=== PATIENT | male | born 1945 | race Caucasian/White ===

== ENCOUNTER → 2017-11-17 | Outpatient (CLI) | payer OTHER, MEDICARE | LOC: BHLMT 15:30 | PROVIDERS: ATTEND Internal Medicine Interventional Cardiology | DX: R07.9 Chest pain, unspecified (principal); I25.10 Atherosclerotic heart disease of native coronary artery without angina pectoris; R01.1 Cardiac murmur, unspecified; R06.02 Shortness of breath | CPT/HCPCS: 93306-PO ==

== ENCOUNTER 2017-12-16 12:18 | Inpatient (IN) | payer OTHER, MEDICARE ==
[2017-12-16] MEDS ORDERED: ASPIRIN EC 325 MG TAB PO ONE (12:22)
[2017-12-16] MEDS ORDERED: FAMOTIDINE 20 MG TAB PO ONE (12:22)
[2017-12-16] MEDS ORDERED: DIAZEPAM 5 MG TAB PO ONE (12:22)
[2017-12-16] MEDS ORDERED: NS 1,000 ML IV ONE ×2 (12:22→16:10)
[2017-12-16] MEDS ORDERED: diphenhydrAMINE 25 MG CAP PO ONE (12:22)
[2017-12-16 13:24] LABS: PLATELET COUNT 269 10^3/uL (150-400)
[2017-12-16] MEDS ORDERED: IOPAMIDOL (ISOVUE-370) 150 ML BTL IV ONE (13:24)
[2017-12-16] MEDS ORDERED: fentaNYL 100 MCG/2 ML INJ ONE ×2 (13:24→16:29)
[2017-12-16] MEDS ORDERED: LIDOCAINE 1% 300 MG/30 ML SDV ONE (13:24)
[2017-12-16] MEDS ORDERED: MIDAZOLAM 2 MG/2 ML VIAL ONE ×2 (13:24→16:21)
[2017-12-16 13:34] LABS: INR 1.02 (0.83-1.16); PROTIME(PATIENT) 13.6 SEC (12.0-15.0)
[2017-12-16] MEDS ORDERED: ALPRAZolam 0.25 MG TAB PO PRN (13:56)
--- NOTE | 2017-12-16 16:09 | PDHPUP ---
History & Physical Update H&P update statement: This history and physical update is based on an assessment of the patient which was completed after admission or registration (within 24 hours), but prior to the surgery/procedure.72 year old male with severe who present for LHC prior to AVR tomorrow. H&P update: H&P reviewed & patient examined, no change in patient's condition since H&P completed
--- NOTE | 2017-12-16 16:09 | PDPROPOC ---
Sedation Plan of Care Sedation Plan of Care: vital signs stable, mental status noted, patient can tolerate sedation ASA Classification: ASA 2 Planned drugs: fentanyl, midazolam Mallampati Score: Class 2 Mallampati Reference Image: Patient passed 3-3-2 rule?: Yes
[2017-12-16] MEDS ORDERED: LIDOCAINE 1% 2 ML INJ ID PRN (16:10)
[2017-12-16] MEDS ORDERED: ATROPINE SULFATE 1 MG/10 ML SYR IVP PRN (17:43)
[2017-12-16] MEDS ORDERED: ONDANSETRON 4 MG/2 ML VIAL IVP PRN (17:43)
--- NOTE | 2017-12-16 18:45 | GCON ---
INFECTIOUS DISEASE CONSULTATION DATE OF CONSULTATION: 12/16/2017 REFERRING PHYSICIAN: Chintan Kessler DO REASON FOR CONSULTATION: Upper chest rash with possibility of shingles. HISTORY OF PRESENT ILLNESS: Patient is a 72-year-old male with severe aortic stenosis who is having a cardiac catheterization prior to anticipated aortic valve replacement tomorrow when a rash was note d over his right upper chest. Patient describes having a rash in this region for approximately 2 wee ks. Over the last week, the area has been pruritic. There has been no pain, numbness, or tingling. He has not noted any blistering. There are also some smaller areas over the right shoulder and left inner arm. No associated fevers, chills, or night sweats. Patient describes having prior shingles vaccination. He believes he did have chickenpox as a child. Given the above findings, I am now asked to see the patient in consultation to assess for any compone nt related to VZV and its impact on proceeding with planned aortic valve replacement. PAST MEDICAL HISTORY: Anxiety, aortic stenosis, coronary artery disease, peptic ulcer disease, hyper lipidemia. PAST SURGICAL HISTORY: Unremarkable. CURRENT MEDICATIONS: Atorvastatin 40 mg p.o. daily, omeprazole 20 mg p.o. daily, Xanax as needed for anxiety. ALLERGIES: No known drug allergies. SOCIAL HISTORY: Patient quit smoking many years ago. REVIEW OF SYSTEMS: No fevers, chills, or night sweats. SKIN: See HPI. NEUROLOGIC: No numbness, t ingling, or weakness. PHYSICAL EXAMINATION: GENERAL: Well nourished, well developed in no acute distress. HEENT: No scl eral icterus, conjunctival injection. No oral thrush. CHEST: Clear to auscultation bilaterally wit hout adventitious sounds. CARDIOVASCULAR: Regular rate and rhythm with a 2/6 systolic murmur heard at the right and left upper sternal borders. ABDOMEN: Soft, nontender, nondistended. SKIN: There is a mild follicular rash over the right upper chest with a few irritated follicles on the right scap ular region and 2 over the left inner arm. No vesicles are present. No crusting or pustulosis. GINETTE ROLOGIC: Patient is alert, interacts appropriately with examiner. LABORATORY DATA: White blood cell count 5.9, hematocrit 40.6, platelets 269, neutrophils 56%, lympho cytes 31%. Serum creatinine 1.2. IMPRESSION: Right upper chest rash: Appears most consistent with mild folliculitis. Appearance wou ld be atypical for shingles as no vesicles present and does not distinctly follow dermatomal distribu tion. Current findings should not preclude proceeding with aortic valve replacement as scheduled sivan orrow. RECOMMENDATIONS: 1. No infectious disease opposition to proceeding with scheduled aortic valve replacement. 2. Agree with standard perioperative Hibiclens and antibiotic prophylaxis. 3. Advised patient to notify me if he develops any blistering or worsening of rash. Thank you for this consultation. /[id number]/MODL
[2017-12-16] MEDS ORDERED: CHLORHEXIDINE GLUC HIBICLENS 118 ML BTL TP SCH (21:00)
--- NOTE | 2017-12-17 04:07 | CPIP ---
DATE OF PROCEDURE: 12/16/2017 INDICATION FOR PROCEDURE: Preoperative left heart catheterization in anticipation of aortic valve re placement tomorrow with Dr. Kessler in the setting of severe aortic stenosis. PROCEDURE: 1. Left heart catheterization. 2. Left and right coronary angiography. 3. No attempt was made to cross the aortic valve. PROCEDURE IN DETAIL: After informed consent was obtained, the patient was brought to the cardiac cat heterization lab where he was prepped and draped in a sterile fashion. Using micropuncture modified Seldinger technique, a 6-German catheter was placed into the right common femoral artery without comp lications. A JL-4 catheter was used to cannulate the left anterior descending coronary artery. Of n ote, he had separate ostia for both the LAD and circumflex vessel. Left anterior descending demonstr ated ostial and proximal stenosis of 60% to 70%. He has a 50% to 60% proximal stenosis just distal t o the takeoff of the 2nd septal agricultural produce washer and 1st diagonal branch. The remainder of the LAD demonst rates some mild luminal irregularities. There is a separate ostia for the circumflex. This is a large caliber, dominant vessel with a large 1st obtuse marginal branch. There is no evidence of significant coronary disease within the circumfl ex vessel. The right coronary artery is a small nondominant vessel. There is no evidence of coronary disease wi thin the RCA. CONCLUSIONS: 1. Single-vessel coronary disease within the left anterior descending. 2. No significant coronary disease in the circumflex or right coronary artery. 3. Separate ostia for the left anterior descending and circumflex. RECOMMENDATIONS: Would recommend single-vessel coronary artery bypass grafting to the left anterior descending in the setting of ostial stenosis as well as proximal stenosis just distal to the 2nd sept al and 1st diagonal branch. We will contact Dr. Kessler and update him on the findings. Patient tolerated the procedure well. Angio-Seal was deployed. Hemostasis was achieved. /[id number]/MODL
[2017-12-17] MEDS ORDERED: niCARdipine/NACL 200 ML IV ONE (06:00)
[2017-12-17] MEDS ORDERED: CITRATE DEXTROSE SOLN 500 ML BAG MISC ONE (06:00)
[2017-12-17] MEDS ORDERED: PHENYLEPHRINE HCL 50 MG in NS 250 ML IV ONE (06:00)
[2017-12-17] MEDS ORDERED: ceFAZolin 2 GM/DEXTROSE 100 ML IV ONE (06:00)
[2017-12-17] MEDS ORDERED: NOREPINEPHRINE BITARTRATE 16 MG in NS 250 ML IV ONE (06:00)
[2017-12-17] MEDS ORDERED: SODIUM BICARBONATE 20 MEQ, LIDOCAINE 1% 10 ML in NORMOSOL-R 1,000 ML MISC ONE (06:00)
[2017-12-17] MEDS ORDERED: AMINOCAPROIC ACID 5 GM/20 ML VIAL IV ONE (06:00)
[2017-12-17] MEDS ORDERED: MUPIROCIN 2% 22 GM OINT NS ONE (06:00)
[2017-12-17] MEDS ORDERED: INSULIN REGULAR HUMAN 100 UNIT in NS 100 ML IV ONE (06:00)
[2017-12-17] MEDS ORDERED: MANNITOL 25% 12.5 GM/50 ML VIAL IVP ONE (06:00)
[2017-12-17] MEDS ORDERED: PROTAMINE SULFATE 50 MG/5 ML VIAL IVP ONE (06:25)
[2017-12-17] MEDS ORDERED: HEPARIN 10,000 UNIT/10 ML MDV (1,000 UNIT/ML) ONE ×2 (06:26→06:29)
[2017-12-17] MEDS ORDERED: NA BICARBONATE 50 MEQ/50 ML VIAL ONE (06:26)
[2017-12-17] MEDS ORDERED: MILRINONE/DEXTROSE/100 ML BAG IV ONE (06:26)
[2017-12-17] MEDS ORDERED: CALCIUM CHLORIDE 1 GM/10 ML INJ ONE ×2 (06:26→06:28)
[2017-12-17] MEDS ORDERED: AMIODARONE HCL 150 MG/3 ML VIAL ONE ×2 (06:27→06:29)
[2017-12-17] MEDS ORDERED: niCARdipine/NACL/200 ML BAG IV ONE (06:27)
[2017-12-17] MEDS ORDERED: ADENOSINE 6 MG/2 ML VIAL ONE (06:27)
[2017-12-17] MEDS ORDERED: DOPamine/DEXTROSE 400 MG/250 ML BAG IV ONE ×2 (06:27→17:42)
[2017-12-17] MEDS ORDERED: ceFAZolin 1 GM VIAL ONE (06:27)
[2017-12-17] MEDS ORDERED: NITROGLYCERIN/D5W 50 MG/250 ML BOTTLE IV ONE (06:27)
[2017-12-17] MEDS ORDERED: ALBUMIN 5% 250 ML BOTTLE IV ONE ×2 (06:28→16:18)
[2017-12-17] MEDS ORDERED: LIDOCAINE 2% 100 MG/5 ML SYR ONE (06:28)
[2017-12-17] MEDS ORDERED: CITRATE DEXTROSE SOLN 500 ML BAG ONE (06:29)
[2017-12-17] MEDS ORDERED: methylPREDNISolone SOD SUCC 1 GM/8 ML VIAL ONE (06:29)
[2017-12-17] MEDS ORDERED: MAGNESIUM SULFATE 1 GM/2 ML VIAL ONE (06:29)
--- NOTE | 2017-12-17 07:54 | PDHPUP ---
History & Physical Update H&P update statement: This history and physical update is based on an assessment of the patient which was completed after admission or registration (within 24 hours), but prior to the surgery/procedure. H&P update: H&P reviewed & patient examined, changes noted H&P changes: LAD CAD
[2017-12-17] MEDS ORDERED: HEP MISC ONE (08:00)
[2017-12-17] MEDS ORDERED: SOD BICARB MISC ONE (08:00)
[2017-12-17] MEDS ORDERED: NITRO MISC ONE (08:00)
[2017-12-17] MEDS ORDERED: [UNRECOGNIZED DRUG - OTHER] MISC ONE (08:00)
[2017-12-17] MEDS ORDERED: LR MISC ONE (08:00)
[2017-12-17] MEDS ORDERED: PAPAVERINE HCL 60 MG/2 ML SDV ONE (08:05)
[2017-12-17] MEDS ORDERED: VERAPAMIL 5 MG/2 ML VIAL ONE (08:06)
[2017-12-17] MEDS ORDERED: MIDAZOLAM 2 MG/2 ML VIAL IVP ONE (08:26)
--- NOTE | 2017-12-17 08:26 | PDANEPAE ---
ANE History of Present Illness here for AVR/CABG ANE Past Medical History - Cardiovascular History Hx Hypertension: No Hx Arrhythmias: No Hx Chest Pain: Yes Hx Coronary Artery / Peripheral Vascular Disease: Yes Hx CHF / Valvular Disease: Yes Hx Palpitations: Yes Cardiovascular History Comment: chest pain with "excessive exertion" - Pulmonary History Hx COPD: No Hx Asthma/Reactive Airway Disease: No Hx Recent Upper Respiratory Infection: No Hx Oxygen in Use at Home: No Hx Sleep Apnea: No Sleep Apnea Screening Result - Last Documented: Negative Pulmonary History Comment: sinus nasal drip - Neurologic History Hx Cerebrovascular Accident: No Hx Seizures: No Hx Dementia: No - Endocrine History Hx Diabetes: No - Renal History Hx Renal Disorders: No - Liver History Hx Hepatic Disorders: No - Neurological & Psychiatric Hx Hx Neurological and Psychiatric Disorders: No - Cancer History Hx Cancer: No - Congenital Disorder History Hx Congenital Disorders: No - GI History Hx Gastrointestinal Disorders: Yes Gastrointestinal History Comment: GERD. occasional dysphagia. hx of bleeding ulcer. states 'nervous stomach' and recently w/occ diarrhea - Other Health History Other Health History: occasional ringing in ears. actinic keratosis on scalp - Chronic Pain History Chronic Pain: No - Surgical History Prior Surgeries: cataract surgery. retinal detachment repair. angiogram, 2000. colonoscopy ANE Review of Systems Review of systems is: negative Review of Systems: - Exercise capacity Exercise capacity: <4 METS METS (RN): 4 METS ANE Patient History - Allergies Allergies/Adverse Reactions: No Known Allergies Allergy (Verified 12/09/17 10:11) - Home Medications Home medications: home medication list seen and reviewed Home Medications: Aspirin [Aspirin 81mg (*)] 81 mg PO DAILY 08/20/10 [Last Taken 08/19/10 08:00] ALPRAZolam [Xanax 0.25 MG (*)] 0.25 - 0.5 mg PO Q8HRS PRN 12/09/17 [Last Taken Unknown] Atorvastatin Calcium [Lipitor 40 mg (*)] 40 mg PO DAILY 12/09/17 [Last Taken Unknown] Omeprazole 20 mg PO DAILY 12/09/17 [Last Taken Unknown] - NPO status NPO Status: no food or drink >8 hours NPO Since - Liquids (Date): 12/17/17 NPO Since - Liquids (Time): 00:01 NPO Since - Solids (Date): 12/16/17 NPO Since - Solids (Time): 22:00 - Anes Hx Anes Hx: no prior problems - Smoking Hx Smoking Status: Former smoker - Family Anes Hx Family Hx Anesthesia Complications: none ANE Labs/Vital Signs - Labs Result Diagrams: 12/16/17 12:50 12/16/17 14:26 - Vital Signs Vital Signs: reviewed preoperatively; see RN documention for details Blood Pressure: 135/59 Heart Rate: 75 Respiratory Rate: 15 O2 Sat (%): 95 Height: 175.26 cm Weight: 86.3 kg ANE Physical Exam - Airway Neck exam: FROM Mallampati Score: Class 1 Mouth exam: normal dental/mouth exam - Pulmonary Pulmonary: no respiratory distress - Cardiovascular Cardiovascular: regular rate and rhythym - ASA Status ASA Status: IV ANE Anesthesia Plan Anesthesia Plan: general endotracheal anesthesia Lines/Monitors: arterial line, central line, MAXI
[2017-12-17] MEDS ORDERED: LR 1,000 ML IV ONE (08:33)
[2017-12-17] MEDS ORDERED: fentaNYL 250 MCG/5 ML INJ ONE (08:39)
[2017-12-17] MEDS ORDERED: PROPOFOL/EMULSION 500 MG/50 ML BOTTLE IV ONE (08:40)
[2017-12-17] MEDS ORDERED: PHENYLEPHRINE HCL 100 MCG/ML SYR ONE (08:40)
[2017-12-17] MEDS ORDERED: KETAMINE 200 MG/20 ML VIAL ONE (09:35)
[2017-12-17] MEDS ORDERED: ISOFLURANE 100 ML BOTTLE IH ONE (10:35)
[2017-12-17] MEDS ORDERED: HYDROmorphONE/DILAUDID 2 MG/ML INJ ONE (10:40)
[2017-12-17] MEDS ORDERED: DEXMEDETOMIDINE HCL 400 MCG in NS 100 ML IV ONE (12:00)
[2017-12-17] MEDS ORDERED: fentaNYL 100 MCG/2 ML INJ ONE (12:18)
[2017-12-17] MEDS ORDERED: MINERAL OIL 10 ML VIAL ONE (12:48)
[2017-12-17] MEDS ORDERED: SUGAMMADEX SODIUM 200 MG/2 ML VIAL IVP ONE (13:00)
[2017-12-17] MEDS ORDERED: PROPOFOL 200 MG/20 ML VIAL ONE (13:14)
[2017-12-17] MEDS ORDERED: BISACODYL 10 MG SUPP PR PRN (13:21)
[2017-12-17] MEDS ORDERED: LACTULOSE 20 GM/30 ML UDCUP PO PRN (13:21)
[2017-12-17] MEDS ORDERED: ONDANSETRON DISINTEGRATING 4 MG TAB PO PRN (13:21)
[2017-12-17] MEDS ORDERED: ACETAMINOPHEN 325 MG TAB PO PRN (13:21)
[2017-12-17] MEDS ORDERED: fentaNYL 100 MCG/2 ML INJ IVP PRN (13:21)
[2017-12-17] MEDS ORDERED: ACETAMINOPHEN 650 MG SUPP PR PRN (13:21)
[2017-12-17] MEDS ORDERED: SODIUM CL NASAL 45 ML BTL EACHNARE PRN (13:21)
[2017-12-17] MEDS ORDERED: POLYETHYLENE GLYCOL 3350 17 GM PKT PO PRN (13:21)
[2017-12-17] MEDS ORDERED: D50W 25 GM/50 ML SYR IVP PRN (13:21)
[2017-12-17] MEDS ORDERED: PANTOPRAZOLE SODIUM 40 MG VIAL IVP ONE (13:21)
[2017-12-17] MEDS ORDERED: MAGNESIUM HYDROXIDE 30 ML UDCUP PO PRN (13:21)
[2017-12-17] MEDS ORDERED: METOCLOPRAMIDE 10 MG/2 ML VIAL IVP PRN (13:21)
[2017-12-17] MEDS ORDERED: MEPERIDINE 25 MG/0.5 ML AMP IVP PRN (13:21)
[2017-12-17] MEDS ORDERED: POTASSIUM Cl (KCl) 50 ML IV PRN (13:21)
[2017-12-17] MEDS ORDERED: ONDANSETRON 4 MG/2 ML VIAL IVP PRN (13:21)
[2017-12-17] MEDS ORDERED: CEPACOL LOZENGE PO PRN (13:21)
[2017-12-17] MEDS ORDERED: INSULIN REGULAR HUMAN 100 UNIT in NS 100 ML IV SCH (13:30)
[2017-12-17] MEDS ORDERED: niCARdipine/NACL 200 ML IV SCH (13:30)
[2017-12-17] MEDS ORDERED: NS 1,000 ML IV SCH (13:30)
[2017-12-17] MEDS: ALBUMIN 5% 250 ML IV PRN ×2 (14:11→14:44)
--- NOTE | 2017-12-17 14:20 | GOP ---
DATE OF OPERATION: 12/17/2017 SURGEON: Chintan Kessler DO MAINTENANCE ELECTRICIAN: Gómez. ANESTHESIOLOGIST: Chang. PREOPERATIVE DIAGNOSIS: 1. Aortic stenosis. 2. Arteriosclerotic heart disease. POSTOPERATIVE DIAGNOSIS: 1. Aortic stenosis. 2. Arteriosclerotic heart disease. PROCEDURE PERFORMED: 1. Coronary artery bypass grafting x2 with left internal mammary artery to the left anterior descend ing, saphenous vein graft to the diagonal. 2. Aortic valve replacement with a #23 Magna bioprosthesis. 3. Ligate left atrial appendage. 4. Endoscopic vein harvest of the left thigh. FINDINGS: DESCRIPTION OF PROCEDURE: Patient was consented, brought to the operating room, intubated. Monitori ng lines were placed. He was prepped and draped in sterile classical manner. Sternotomy was perform ed. Mammary and vein were harvested endoscopically by GERARDO Vasquez, who first assisted throughout the procedure. Patient was cannulated. Bypass was begun. Cardioplegic arrest was obtained with an tegrade cardioplegia, topical hypothermia, and retrograde cardioplegia. Initially, the distal grafts were performed. The diagonal was a good quality 2.5 mm vessel. The LAD was a 2.8 mm vessel. The conduits were excellent. The proximal anastomosis was completed with a cr oss-clamp on. We then doubly ligated the left atrial appendage with Endoloops. Aortotomy was performed. A heavily calcified bicuspid aortic valve was excised. The anulus was debr ided. The chamber was irrigated. CO2 was infused. A 23 mm Magna valve was sutured in a supra-annul ar position with interrupted 2-0 Tycron pledgeted mattress sutures. Aortotomy was closed in a 2-laye r fashion. Cross-clamp was removed with suction on the ascending aortic vent. Spontaneous cardiac a ctivity was noted to resume. The patient was rewarmed. After echo confirmed adequate valvular and ventricular function, he was weaned from bypass. Heparin was reversed with protamine. Cannula was removed and oversewn. Two pacing wires on the ventricle we re placed, as well as 1 left pleural, 1 mediastinal drain. The thymic fat and pericardium were close d. Chest was closed in standard fashion. Patient was returned to ICU in stable condition. /[id number]/MODL
--- NOTE | 2017-12-17 14:43 | PDMN ---
Medical Necessity Medical necessity: [facility] IP only surgery; Valve Replacement/Repair (cpt 76763) & CABG ([facility] [place] [id number])
[2017-12-17] MEDS ORDERED: ALBUMIN 5% 250 ML IV ONE (17:00)
--- NOTE | 2017-12-17 17:04 | POSTANESTH ---
Post Anesthetic Evaluation Cardiovascular Status: Normal, Stable Respiratory Status: Requires Airway Assist Level of Consciousness/Mental Status: Moderately Sleepy Pain Control: Adequate, Prn Tx Ordered Nausea/Vomiting Control: Adequate, Prn Tx Ordered Complications Possibly Related to Anesthesia: None Noted
[2017-12-17] MEDS: ceFAZolin 2 GM/DEXTROSE 100 ML IV SCH (17:26)
[2017-12-17] MEDS ORDERED: DOPamine 400 MG in D5W 250 ML IV SCH (18:00)
[2017-12-17] MEDS ORDERED: CHLORHEXIDINE GLUCONATE 15 ML UDL PO SCH (21:00)
[2017-12-17] MEDS ORDERED: FAMOTIDINE 20 MG/NACL 50 ML IV SCH (21:00)
[2017-12-17] MEDS: SENNOSIDES/DOCUSATE SODIUM TAB PO SCH (21:42)
[2017-12-17] MEDS: MUPIROCIN 2% 22 GM OINT NS SCH (21:43)
[2017-12-17] MEDS: HYDROCODONE/APAP 5/325 TAB PO PRN (22:38)
[2017-12-18] MEDS: ceFAZolin 2 GM/DEXTROSE 100 ML IV SCH ×3 (00:40→16:45)
[2017-12-18] MEDS: HYDROCODONE/APAP 5/325 TAB PO PRN ×5 (04:58→22:07)
[2017-12-18 05:16] LABS: PLATELET COUNT 128 10^3/uL (150-400)
[2017-12-18] MEDS ORDERED: ALBUMIN 5% 250 ML BOTTLE IV ONE ×2 (06:29→07:18)
--- NOTE | 2017-12-18 06:51 | SOAPPROG ---
SOAP Progress Note Assessment/Plan: Assessment: POD#1 AVR#23 Magna bioprosthesis, CABG x 2 (WANG-LAD, SV-Dx), EVH left thigh, prophylactic suture ligation SHEREEN Sx severe - s/p tissue AVR. Extubated without incident. Hemodynamically stable overnight on low dose dopa. No bradyarrhythmias or backup pacing. Adequately diuresing moderate volume overload. Antithrombotic prophylaxis with ASA alone, pending stability of rhythm. AF prophylaxis with BB when appropriate. Incidental CAD w preserved LV systolic fx - Fully revascularized with 2 bypass grafts. Secondary prevention with baby ASA. BB and statin when appropriate. Acute expected blood loss anemia - Stable. No transfusions needed. No evidence bleeding. VTE prophylaxis with SCDs/SQ hep. Plan: Routine POD#1 orders re drains, wires, orals and mobility. Wean dopa to MAP > 65. Colloid prn CVP < 10. Possible tx to SDU later today. 12/18/17 06:50 Subjective: Feels well. OOB without dizziness. No nausea. IS > 1000. Objective: Vital Signs Temp Pulse Resp BP Pulse Ox 37.3 C 68 14 93/49 L 98 12/18/17 04:00 12/18/17 06:00 12/18/17 06:00 12/18/17 06:00 12/18/17 06:00 Laboratory Results 12/18/17 05:05 12/18/17 05:05 12/17/17 12/18/17 12/19/17 05:59 05:59 05:59 Intake Total 3121 Output Total 2325 Balance 796 PT 13.6 SEC (12.0-15.0) 12/16/17 12:50 INR 1.02 (0.83-1.16) 12/16/17 12:50 Dopa down to 3 mcg overnoc w MAPs > 70 and stable renal fx. Holding SR > 60 w BBB (chronic). Burst of PSVT v NSVT early this am. No sig CTOP. H/H stable. CXR-> No PTX, no pulm vasc congestion, mild bibasilar atelectasis. Physical Exam - Physical Exam General Appearance: alert, no apparent distress Respiratory: crackles (scattered, bases), other (blakes x 2 y-d to pleurovac, serosang drainage, no air leak) Cardiac/Chest: regular rate, rhythm, other (Sternotomy CDI. Vwires intact.) Abdomen: non-tender, soft Skin: warm/dry Extremities: swelling (1+ gen), other (LLE wrap intact.) ICD10 Worksheet Patient Problems: Problems Problem Status Onset Acute blood loss anemia Acute Aortic valve stenosis with insufficiency Acute CAD (coronary artery disease) Acute S/P CABG x 2 Acute S/P aortic valve replacement with bioprosthetic valve Acute
[2017-12-18] MEDS: HEPARIN 5,000 UNIT/0.5 ML INJ SC SCH ×3 (06:55→22:02)
[2017-12-18] MEDS ORDERED: KETOROLAC 15 MG/1 ML SDV IVP PRN (07:25)
[2017-12-18] MEDS ORDERED: ALBUMIN 5% 250 ML IV ONE (07:25)
[2017-12-18] MEDS: PANTOPRAZOLE SODIUM 40 MG TAB PO SCH (08:40)
[2017-12-18] MEDS: SENNOSIDES/DOCUSATE SODIUM TAB PO SCH ×2 (08:40→22:01)
[2017-12-18] MEDS: ASPIRIN 81 MG CHEWABLE TAB PO SCH (08:40)
--- NOTE | 2017-12-18 09:20 | CPEKG ---
Test Reason : OPEN Blood Pressure : / mmHG Vent. Rate : 105 BPM Atrial Rate : 109 BPM P-R Int : 158 ms QRS Dur : 129 ms QT Int : 376 ms P-R-T Axes : 068 042 205 degrees QTc Int : 498 ms Sinus tachycardia Left bundle branch block LBBB is new in comparison to prior Confirmed by Donald Corona ([id number]) on 12/18/2017 9:20:34 AM Referred By: Confirmed By:Donald Corona
[2017-12-18] MEDS: MUPIROCIN 2% 22 GM OINT NS SCH ×2 (09:59→22:02)
[2017-12-18] MEDS ORDERED: ALBUMIN 5% 500 ML IV ONE (11:09)
--- NOTE | 2017-12-18 12:12 | CPEKG ---
Test Reason : OPEN Blood Pressure : / mmHG Vent. Rate : 086 BPM Atrial Rate : 087 BPM P-R Int : 159 ms QRS Dur : 127 ms QT Int : 428 ms P-R-T Axes : 079 076 -74 degrees QTc Int : 512 ms Sinus rhythm IVCD, consider atypical LBBB Confirmed by Donald Corona ([id number]) on 12/18/2017 12:12:06 PM Referred By: Confirmed By:Donald Corona
--- NOTE | 2017-12-18 12:33 | ASMTCASEMG ---
Living Arrangements What is your living Answers: With Spouse arrangement? Who do you live with? Type Of Residence What kind of residence do Answers: House you live in? Discharge Plan Comments Coordination Status Comments Notes: Patient is a 72yo male with severe aortic stenosis who is having cardiac catheterization prior to aortic valve replacement. Cardiac rehab/PT/OT have been ordered. Patient lives in [place] with his . Patient most likely will need cardiac rehab. D/C plan TBD. CM will follow. Date Signed: 12/18/2017 12:32 PM Electronically Signed By:Calista Ford LCSW
[2017-12-18] MEDS ORDERED: NOREPINEPHRINE BITARTRATE 16 MG in NS 250 ML IV SCH (15:00)
--- NOTE | 2017-12-18 16:05 | PDINTPN ---
Wafer Fab Operator Progress Note Assessment/Plan: Assessment: S/P AVR/CABGx2 Hypotension: WIth orthostatic symptoms. Requiring low-dose NE. Post-op anamia: Hgb stable. No signs of significant active bleeding Hyperglycemia: Well-managed with IV insulin. Plan: Wean off insulin, NE. Increase activity as tolerated. Follow Hgb 12/18/17 16:04 Subjective: Lightheaded when standing. Sternal CP. Objective: Vital Signs Temp Pulse Resp BP Pulse Ox 36.4 C 89 10 L 105/43 L 95 12/18/17 11:00 12/18/17 15:00 12/18/17 15:00 12/18/17 15:00 12/18/17 15:00 Laboratory Results 12/18/17 05:05 12/18/17 13:25 12/17/17 12/18/17 12/19/17 05:59 05:59 05:59 Intake Total 3121 480 Output Total 2325 990 Balance 796 -510 PT 13.6 SEC (12.0-15.0) 12/16/17 12:50 INR 1.02 (0.83-1.16) 12/16/17 12:50 Physical Exam - Physical Exam General Appearance: alert, no apparent distress EENT: normal ENT inspection Neck: normal inspection Respiratory: lungs clear, normal breath sounds Cardiac/Chest: regular rate, rhythm, friction rub (single component), No edema Abdomen: normal bowel sounds, non-tender Skin: normal color, warm/dry Extremities: normal inspection Neuro/Psych: alert, normal mood/affect, oriented x 3 ICD10 Worksheet Patient Problems: Problems Problem Status Onset Acute blood loss anemia Acute Aortic valve stenosis with insufficiency Acute CAD (coronary artery disease) Acute S/P CABG x 2 Acute S/P aortic valve replacement with bioprosthetic valve Acute
--- NOTE | 2017-12-18 16:36 | GCON ---
PULMONARY/CRITICAL CARE CONSULTATION DATE OF CONSULTATION: 12/17/2017 REASON FOR REFERRAL: Evaluation and management of postoperative respiratory failure and anemia. HISTORY: The patient is a 72-year-old male with a history of symptomatic aortic stenosis who seen by Dr. Kessler last month for evaluation due to symptoms including lightheadedness and dyspnea. He was f ound to have an aortic valve area of 0.6 sq cm with a pressure gradient of 62 mmHg. He admitted for evaluation yesterday and underwent elective aortic valve replacement today as well as two-vessel kieran nary artery bypass grafting and ligation of the left atrial appendage. His intraoperative course was unremarkable. Postoperatively, he was returned to the intensive care unit intubated. At the time o f my evaluation, he is awake and alert but has recurrent episodes of apnea as long as 40 seconds when placed on CPAP. He denies chest pain or dyspnea. PAST MEDICAL HISTORY: 1. Aortic stenosis. 2. Coronary artery disease. 3. Hypertension. 4. History of peptic ulcer. 5. Hyperlipidemia. MEDICATIONS: At the time of admission include aspirin, atorvastatin, omeprazole, and Xanax. ALLERGIES: None. SOCIAL HISTORY: The patient is retired. He has about a 50 pack-year history of smoking which he sto pped about 20 years ago. He drinks alcohol occasionally. FAMILY HISTORY: History is positive for coronary artery disease. REVIEW OF SYSTEMS: Unobtainable as the patient is intubated and intermittently somnolent, not respon ding consistently to questions. PHYSICAL EXAMINATION: GENERAL: The patient is somnolent but alert. He looks to voice. He falls ba ck asleep quickly. VITAL SIGNS: Blood pressure is 91/53 with a heart rate of 67. He is afebrile. Oxygen saturations are 100% on 40% oxygen. HEENT: Normocephalic and atraumatic. No icterus. NECK: No adenopathy. Trachea is midline. CHEST: Clear to auscultation. CARDIAC: Regular rate and rhy thm without murmur. ABDOMEN: Soft, nontender. Bowel sounds are present. EXTREMITIES: No clubbing , cyanosis, or edema. NEURO: The patient is intermittently alert. He is able to move all extremiti es to command symmetrically. LABORATORY: The chemistry group is unremarkable. Glucose is 146. Hemoglobin is 12.2, down from 13. 8 yesterday. The MCV is 86.6. Arterial blood gas shows a pH of 7.37 with a pO2 of 94, CO2 of 40, an d a bicarbonate of 23 on 40% oxygen with CPAP. A chest x-ray shows a clear lung field. The endotrac heal tube is appropriately placed. Images reviewed by me. ASSESSMENT: 1. Postoperative respiratory failure. The patient is continuing to have apnea, but has good oxygen saturations. This is likely due to a postoperative anesthesia effect. I anticipate this will improv e over the next few hours. 2. Anemia. The patient has mild anemia that is likely related to intraoperative blood loss as well as a volume replacement. 3. Hyperglycemia. The patient has mild hyperglycemia postoperatively. He does not have a preoperat jessica history of diabetes. RECOMMENDATIONS: 1. Continue on CPAP/IMV. Once the patient is more consistently alert, awake, and not having apneic episodes, he can be extubated. 2. Follow hemoglobin. 3. Start insulin drip to control blood sugars postoperatively. /[id number]/MODL
[2017-12-19] MEDS: ceFAZolin 2 GM/DEXTROSE 100 ML IV SCH (00:17)
[2017-12-19] MEDS: HYDROCODONE/APAP 5/325 TAB PO PRN ×5 (02:27→21:06)
[2017-12-19] MEDS: HEPARIN 5,000 UNIT/0.5 ML INJ SC SCH (06:20)
[2017-12-19] MEDS ORDERED: POTASSIUM CL 20 MEQ TAB PO ONE (08:17)
[2017-12-19] MEDS ORDERED: FUROSEMIDE 40 MG/4 ML VIAL IVP ONE (08:17)
--- NOTE | 2017-12-19 08:49 | SOAPPROG ---
SOAP Progress Note Assessment/Plan: Assessment: POD#2 AVR#23 Magna bioprosthesis, CABG x 2 (WANG-LAD, SV-Dx), EVH left thigh, prophylactic suture ligation SHEREEN Sx severe - s/p tissue AVR. Extubated without incident. Transient dopa for postpump vasoplegia. Moderate volume overload well tolerated. No bradyarrhythmias or backup pacing. Antithrombotic prophylaxis with ASA alone, pending stability of rhythm. AF prophylaxis with BB when appropriate. Incidental CAD w preserved LV systolic fx - Fully revascularized with 2 bypass grafts. Secondary prevention with baby ASA. BB and statin when appropriate. Acute expected blood loss anemia with thrombocytopenia - Stable. No transfusions needed. No evidence bleeding. No sig CTOP. Downward trending H/H likely dilutional. Follow. Care w VTE prophylaxis while platelets depressed. Plan: Start IV diuresis. Remove V wires and ant mediastinal drain. Inc mobility as tolerated. Tx to PCU. Baseline postop echo Mon. Dispo - Home without services in 2-3 days. 12/19/17 08:48 Subjective: Feeling better. OOB without dizziness. Adequate analgesia. Objective: Vital Signs Temp Pulse Resp BP Pulse Ox 37.6 C 86 19 103/45 L 91 L 12/19/17 00:00 12/19/17 06:00 12/19/17 06:00 12/19/17 06:00 12/19/17 06:00 Laboratory Results 12/19/17 05:30 12/19/17 05:30 12/18/17 12/19/17 12/20/17 05:59 05:59 05:59 Intake Total 3121 2998 Output Total 2325 1430 150 Balance 796 1568 -150 PT 13.6 SEC (12.0-15.0) 12/16/17 12:50 INR 1.02 (0.83-1.16) 12/16/17 12:50 Off pressor support yest pm. Holding SR with SBPs > 100. Borderline suppl O2 req. CTOP approaching removal criteria. Positive fluid balance. +7 kg overall. Labs ok. Physical Exam - Physical Exam General Appearance: alert, no apparent distress Respiratory: lungs clear (grossly), other (blakes x 2 to bulb suction, serosang drainage) Cardiac/Chest: regular rate, rhythm, other (Sternotomy and LLE venotomy CDI. Vwires intact.) Abdomen: non-tender, soft Skin: warm/dry Extremities: swelling (1+ gen) ICD10 Worksheet Patient Problems: Problems Problem Status Onset Acute blood loss anemia Acute Aortic valve stenosis with insufficiency Acute CAD (coronary artery disease) Acute S/P CABG x 2 Acute S/P aortic valve replacement with bioprosthetic valve Acute
[2017-12-19] MEDS: SENNOSIDES/DOCUSATE SODIUM TAB PO SCH ×2 (10:17→21:02)
[2017-12-19] MEDS: ASPIRIN 81 MG CHEWABLE TAB PO SCH (10:17)
[2017-12-19] MEDS: PANTOPRAZOLE SODIUM 40 MG TAB PO SCH (10:17)
[2017-12-19] MEDS: MUPIROCIN 2% 22 GM OINT NS SCH (10:18)
[2017-12-19] MEDS: traMADol 50 MG TAB PO PRN ×2 (12:01→17:09)
[2017-12-20] MEDS: HYDROCODONE/APAP 5/325 TAB PO PRN ×5 (05:31→21:25)
[2017-12-20 05:56] LABS: PLATELET COUNT 101 10^3/uL (150-400)
[2017-12-20] MEDS: ASPIRIN 81 MG CHEWABLE TAB PO SCH (08:33)
[2017-12-20] MEDS: SENNOSIDES/DOCUSATE SODIUM TAB PO SCH ×2 (08:33→21:25)
[2017-12-20] MEDS: PANTOPRAZOLE SODIUM 40 MG TAB PO SCH (08:34)
--- NOTE | 2017-12-20 08:39 | SOAPPROG ---
SOAP Progress Note Assessment/Plan: Assessment: POD#3 AVR#23 Magna bioprosthesis, CABG x 2 (WANG-LAD, SV-Dx), EVH left thigh, prophylactic suture ligation SHEREEN Sx severe - s/p tissue AVR. Extubated without incident. Transient dopa for postpump vasoplegia. Moderate volume overload well tolerated. No bradyarrhythmias or backup pacing. Antithrombotic prophylaxis with ASA alone, pending stability of rhythm. AF prophylaxis with BB when appropriate. Incidental CAD w preserved LV systolic fx - Fully revascularized with 2 bypass grafts. Secondary prevention with baby ASA. BB and statin when appropriate. Acute expected blood loss anemia with thrombocytopenia - Stable. No transfusions needed. No evidence bleeding. No sig CTOP. Downward trending H/H likely dilutional. Follow. Plan: Consider removal chest tube later today. Cont inc activity as tolerated. Baseline postop echo tomorrow. Resume lipitor tomorrow. Dispo - Home without services in 2 days. 12/20/17 08:40 Subjective: Doing ok. Improving stamina and mobility. No dizziness. Adequate analgesia. Occ dysesthesias LLE below harvest site. Objective: Vital Signs Temp Pulse Resp BP Pulse Ox 37.1 C 104 H 14 94/66 L 93 12/20/17 04:00 12/20/17 07:43 12/20/17 07:43 12/20/17 07:43 12/20/17 07:43 Laboratory Results 12/20/17 05:35 12/20/17 05:35 12/19/17 12/20/17 12/21/17 05:59 05:59 05:59 Intake Total 2998 1050 Output Total 1430 1415 Balance 1568 -365 PT 13.6 SEC (12.0-15.0) 12/16/17 12:50 INR 1.02 (0.83-1.16) 12/16/17 12:50 Holding SR and adequate SBP. Min suppl O2 req. CTOP nearing removal criteria. CXR-> hypovent, mild pulm vasc congestion, bibasilar atelectasis. No further drop in H/H or plts. - Pending Discharge Pending Discharge Within 48 Hours: Yes Pending Discharge Date: 12/22/17 Pending Discharge Time: 11:00 Physical Exam - Physical Exam General Appearance: alert, no apparent distress Respiratory: lungs clear (grossly), other (loyd to bulb suction, mostly serous drainage) Cardiac/Chest: regular rate, rhythm, other (Sternotomy CDI. ) Abdomen: non-tender, soft Skin: warm/dry Extremities: swelling (trace), other (LLE venotomy CDI. Venot tract slightly full and bruised, prob hematoma.) ICD10 Worksheet Patient Problems: Problems Problem Status Onset Acute blood loss anemia Acute Aortic valve stenosis with insufficiency Acute CAD (coronary artery disease) Acute S/P CABG x 2 Acute S/P aortic valve replacement with bioprosthetic valve Acute
--- NOTE | 2017-12-20 17:17 | ASMTCMCOM ---
CM Note CM Note Notes: CM spoke with KAMI Luna, patient progressing post op day 3. On O2 1-2 liters. All tubes removed today. Patient likely to discharge home independent in 1-2 days. CM to follow. Plan: home independent. Date Signed: 12/20/2017 05:17 PM Electronically Signed By:Aleshia Daley
[2017-12-21] MEDS: HYDROCODONE/APAP 5/325 TAB PO PRN ×4 (05:23→20:21)
--- NOTE | 2017-12-21 07:34 | SOAPPROG ---
SOAP Progress Note Assessment/Plan: Assessment: POD#4 AVR#23 Magna bioprosthesis, CABG x 2 (WANG-LAD, SV-Dx), EVH left thigh, prophylactic suture ligation SHEREEN Sx severe - s/p tissue AVR. Extubated without incident. Transient dopa for postpump vasoplegia. Moderate volume overload well tolerated. No bradyarrhythmias or backup pacing. Tubes and wires out. Antithrombotic prophylaxis with ASA alone, pending stability of rhythm. AF prophylaxis with BB as yanci. Incidental CAD w preserved LV systolic fx - Fully revascularized with 2 bypass grafts. Secondary prevention with baby ASA, statin, and BB. Acute expected blood loss anemia with thrombocytopenia - Stable. No transfusions needed. No evidence bleeding. No sig CTOP. Downward trending H/H likely dilutional. Follow. Plan: Baseline postop echo today. Start metoprolol tartrate 12.5 mg BID. Resume lipitor. Dispo - Home without services tomorrow. 12/21/17 07:32 Subjective: Improving stamina. Satisfactory analgesia. +BM. Comfortable going home tomorrow. Objective: Vital Signs Temp Pulse Resp BP Pulse Ox 36.9 C 94 18 112/68 93 12/21/17 04:00 12/21/17 04:00 12/21/17 04:00 12/21/17 04:00 12/21/17 04:00 Laboratory Results 12/21/17 05:40 12/20/17 05:35 12/20/17 12/21/17 12/22/17 05:59 05:59 05:59 Intake Total 1050 600 Output Total 1415 1115 Balance -365 -515 PT 13.6 SEC (12.0-15.0) 12/16/17 12:50 INR 1.02 (0.83-1.16) 12/16/17 12:50 Holding SR/ST with SBPs > 100. Borderline suppl O2 req. Adequate autodiuresis. Labs ok. - Pending Discharge Pending Discharge Within 24 Hours: Yes Pending Discharge Date: 12/22/17 Pending Discharge Time: 11:00 Physical Exam - Physical Exam General Appearance: alert, no apparent distress Respiratory: lungs clear (grossly) Cardiac/Chest: regular rate, rhythm, other (Sternotomy and LLE venotomy CDI) Abdomen: non-tender, soft Skin: warm/dry Extremities: other (no visible dependent edema) ICD10 Worksheet Patient Problems: Problems Problem Status Onset Acute blood loss anemia Acute Aortic valve stenosis with insufficiency Acute CAD (coronary artery disease) Acute S/P CABG x 2 Acute S/P aortic valve replacement with bioprosthetic valve Acute
[2017-12-21] MEDS: SENNOSIDES/DOCUSATE SODIUM TAB PO SCH (09:14)
[2017-12-21] MEDS: ASPIRIN 81 MG CHEWABLE TAB PO SCH (09:14)
[2017-12-21] MEDS: ATORVASTATIN CALCIUM 40 MG TAB PO SCH (09:15)
[2017-12-21] MEDS: METOPROLOL TARTRATE 25 MG TAB PO SCH ×2 (09:15→20:24)
[2017-12-21] MEDS: PANTOPRAZOLE SODIUM 40 MG TAB PO SCH (09:15)
--- NOTE | 2017-12-21 11:41 | ECHO ---
[email or web address] [address] Main: [phone] Fax: Transthoracic Echocardiogram Name: DIALLO KULKARNI MR#: [id number] Study Date: 12/21/2017 Study Time: 10:33 AM Date of : 1945 Age: 72 year(s) Height: 175.3 cm (69 in.) Weight: 88.91 kg (196 lb.) BSA: 2.05 m2 Gender: Male Examination: Echo Indication: baseline postop echo s/p AVR #23 CE Magna bioprosthesis Image Quality: Adequate Contrast: Requested by: Mary Smiley BP: 96 mmHg/61 mmHg Heart Rate: Rhythm: Indication: baseline postop echo s/p AVR #23 CE Magna bioprosthesis Procedure Staff [employer] Collision Estimator: Asia Lanier [facility] Reading Physician: Chintan Neely MD Requesting Provider: Conclusions: Normal size left ventricle. Concentric LV hypertrophy. EF is 47 %. There is paradoxic septal motion suggestive of bundle branch block, paced cardiac rhythm, or prior cardiac surgery. Mild-moderate mitral annular calcification. Trivial mitral valve regurgitation. The aortic valve is a bioprosthesis. Normal functioning aortic valve prosthesis. Mild tricuspid regurgitation is present. No pericardial effusion. Compared to 11/17/2017, there has been interval replacement of the aortic valve with a bioprosthesis. Other findings unchanged. Measurements: Chambers Valvular Assessment AV/MV Valvular Assessment TV/PV Normal Normal Normal Name Value Range Name Value Range Name Value Range Ao Haydee (2D): 2.7 cm (1.4 cm-2.6 AV Vmax: 2.55 m/s (1 m/s-1.7 PV Vmax: 0.96 m/s (0.6 m/s-0.9 cm) m/s) m/s) IVSd (2D): 1.3 cm (0.6 cm-1.1 AV maxP mmHg ( - ) PV PGmax: 4 mmHg ( - ) cm) AV meanP mmHg ( - ) LVDd (2D): 4.7 cm (4.2 cm-5.9 LVOT Vmax: 1.06 m/s (0.7 m/s-1.1 cm) m/s) LVDs (2D): 3.2 cm (2.1 cm-4 SHAHZAD (Vmax): 0.9 cm2 ( - ) cm) SHAHZAD (VTI): 1.0 cm ( - ) LVPWd (2D): 1.2 cm (0.6 cm-1 MV E Vmax: 1.11 m/s ( - ) cm) MV A Vmax: 0.56 m/s ( - ) LVOTd 1.7 cm 1.7 cm mm MV E/A: 1.98 ( - ) LVEF (MOD4): 47 % (>=55 %) Patient: DIALLO KULKARNI Study Date: 12/21/2017 Page 1 of 2 10:33 AM RVDd(2D): 2.5 cm (1.9 cm-3.8 MV PHT: 0.047 s ( - ) cmmm) MVA (PHT): 4.7 s ( - ) Continued Measurements: Chambers Valvular Assessment AV/MV Name Value Name Value LADs: 3.0 cm MV DecTime: 165 m/s LADs Lon.3 cm MV E/E' Septal: 15.00 LA Area: 17.6 cm2 MV E/E' Lateral: 12.20 LA Volume: 57 ml LA Volume Index: 27.8 ml/m2 RA Area: 16.1 cm2 Additional Vessels Name Value Ao Ascendin.2 cm Inferior Vena Cava: 2.1 cm Findings: Left Ventricle: Normal size left ventricle. Concentric LV hypertrophy. Normal global systolic LV function. EF is 47 %. There is paradoxic septal motion suggestive of bundle branch block, paced cardiac rhythm, or prior cardiac surgery. Normal diastolic LV function. Right Ventricle: Normal size right ventricle. Normal RV function. Left Atrium: The left atrium is normal in size. Right Atrium: The right atrium is normal in size. Mitral Valve: Mild-moderate mitral annular calcification. Trivial mitral valve regurgitation. No mitral stenosis is present. Aortic Valve: The aortic valve is a bioprosthesis. Normal functioning aortic valve prosthesis. The prosthetic aortic valve is normal. The orifice motion of the prosthetic aortic valve is normal. No prosthesis regurgitation. #23 Magna bioprosthesis. Tricuspid Valve: The tricuspid valve is normal in appearance and function. Mild tricuspid regurgitation is present. Pulmonic Valve: The pulmonic valve is normal in appearance and function. Trivial pulmonic valve regurgitation. Aorta: The aorta is normal. Normal size aortic root measuring 2.7 cm. Normal size ascending aorta measuring 3.2 cm. IVC: The IVC is normal sized. Pericardium: No pericardial effusion. No pleural effusion. Exam Comments: (No Signature Object) Patient: DIALLO KULKARNI Study Date: 12/21/2017 Page 2 of 2 10:33 AM [id number]
[2017-12-21] MEDS ORDERED: SENNOSIDES/DOCUSATE SODIUM TAB PO PRN (21:00)
[2017-12-21] MEDS: HEPARIN 5,000 UNIT/0.5 ML INJ SC SCH (22:03)
[2017-12-22] MEDS: HYDROCODONE/APAP 5/325 TAB PO PRN ×2 (04:42→08:56)
--- NOTE | 2017-12-22 06:24 | SOAPPROG ---
SOAP Progress Note Assessment/Plan: POD #5: AVR #23 Magna bioprosthesis, CABG x 2 (WANG-LAD, SV-Dx), EVH left thigh , prophylactic suture ligation SHEREEN Sx severe - s/p tissue AVR. Extubated without incident. Tubes and wires out. Antithrombotic prophylaxis with ASA alone, pending stability of rhythm. AF prophylaxis with BB as yanci. Incidental CAD w preserved LV systolic fx - Fully revascularized with 2 bypass grafts. Secondary prevention with baby ASA, statin, and BB. Acute expected blood loss anemia with thrombocytopenia - Stable. No transfusions needed. No evidence bleeding. No sig CTOP. Downward trending H/H likely dilutional. Follow. DVT prophylaxis - heparin SQ/SCDs. Disposition - home today without services. Subjective: Feels well. Ready to go home. Objective: Vital Signs Temp Pulse Resp BP Pulse Ox 36.8 C 89 16 107/69 98 12/22/17 04:00 12/22/17 04:00 12/22/17 04:00 12/22/17 04:00 12/22/17 04:00 Laboratory Results 12/21/17 05:40 12/20/17 05:35 12/21/17 12/22/17 12/23/17 05:59 05:59 05:59 Intake Total 600 550 Output Total 1115 575 Balance -515 -575 550 PT 13.6 SEC (12.0-15.0) 12/16/17 12:50 INR 1.02 (0.83-1.16) 12/16/17 12:50 Physical Exam - Physical Exam General Appearance: WD/WN, alert, no apparent distress EENT: No scleral icterus (R), No scleral icterus (L) Neck: normal inspection Respiratory: No respiratory distress Cardiac/Chest: regular rate, rhythm Abdomen: non-tender, soft, No distended Skin: normal color, warm/dry Extremities: No pedal edema Neuro/Psych: no motor/sensory deficits, alert, normal mood/affect, oriented x 3 ICD10 Worksheet Patient Problems: Problems Problem Status Onset Acute blood loss anemia Acute Aortic valve stenosis with insufficiency Acute CAD (coronary artery disease) Acute S/P CABG x 2 Acute S/P aortic valve replacement with bioprosthetic valve Acute
[2017-12-22] MEDS: METOPROLOL TARTRATE 25 MG TAB PO SCH (08:57)
[2017-12-22] MEDS: ATORVASTATIN CALCIUM 40 MG TAB PO SCH (08:57)
[2017-12-22] MEDS: ASPIRIN 81 MG CHEWABLE TAB PO SCH (08:58)
[2017-12-22] MEDS: PANTOPRAZOLE SODIUM 40 MG TAB PO SCH (08:58)
[2017-12-22] MEDS: HEPARIN 5,000 UNIT/0.5 ML INJ SC SCH (09:16)
--- NOTE | 2017-12-22 09:20 | PDDCSUM ---
Discharge Summary Discharge Summary: ADMISSION DATE: 12/16/17 DISCHARGE DATE: 12/22/17 DISCHARGE DIAGNOSES 1. Severe 2. CAD 3. Acute blood loss anemia PROCEDURES 12/17/17, Chintan Kessler: 1. CABGx2 (WANG-LAD, SVG-diagonal) 2. AVR with #23 Magna bioprosthesis 3. Ligation left atrial appendage 4. EVH left thigh HPI 72M admitted in advance of AVR for risk stratification and found to have severe LAD and diagonal CAD in need of surgical revascularization. HOSPITAL COURSE BY PROBLEM LIST 1. Severe - s/p AVR. ASA for thromboprophylaxis. Beta-antonio avoided d/t low blood pressure. 2. Incidental CAD - s/p CABGx2. ASA and statin prescribed for secondary prevention. 3. Acute blood loss anemia - no transfusions required. CONDITION Good PERTINENT PHYSICAL EXAM Vitals: 98/62, 81 SR, 93% on RA, 21kg Exam: S1S2, No resp distress, ND, soft, NTP, BLE with trace edema DISPOSITION Home without services ACTIVITY Pt was instructed on sternal precautions, activity limitations, and which problems to call [facility] with. Please see Discharge Plan in chart for specifics. DISCHARGE MEDICATIONS Continue: Aspirin [Aspirin 81mg (*)] 81 mg PO DAILY ALPRAZolam [Xanax 0.25 MG (*)] 0.25 - 0.5 mg PO Q8HRS PRN Atorvastatin Calcium [Lipitor 40 mg (*)] 40 mg PO DAILY Omeprazole 20 mg PO DAILY New: Acetaminophen [Tylenol 325mg (*)] 325 - 650 mg PO Q4HRS PRN Hydrocodone/APAP 5/325 [Elrosa 5/325 (*)] 1 tab PO Q6HRS PRN #20 Discontinue n/a PENDING STUDIES/LABS 1. CXR prior to surgical follow-up FOLLOW-UP 1. Chintan Kessler, 12/29/17, 10:30 AM 2. Jayne Steve, to be arranged at surgical f/u
--- NOTE | 2017-12-22 10:29 | ASDISCHSUM ---
Discharge Information Plan Status:Home with No Needs Medically Cleared to Leave:12/22/2017 Discharge Date:12/22/2017 CM D/C Disposition:Home, Routine, Self-Care ADT D/C Disposition:Home, Routine, Self-Care Projected Discharge Date:12/22/2017 Transportation at D/C:Family Discharge Delay Reason: Follow-Up Date:12/22/2017 Discharge Slot: Final Diagnosis: Placement Information Patient Contact Information Contact Name:MELISSA Relationship: Address:[address] City:[place] Alternate Phone: [facility]/Zip Code:[place] [address] Email: Financial Information Financial Class:Medicare Primary Plan Desc:MEDICARE INPATIENT Primary Plan Number:[id number] Secondary Plan Desc:VILMA/DAVIE SUPPLEMENT Secondary Plan Number:[id number] Assessment Information LACE LACE Length of stay for Answers: 4-6 days current admission Acuity / Level of Answers: Yes Care: Did the patient have an inpatient admission? Comorbidities - select Answers: Coronary Artery Disease all that apply Other Notes: GERD; HLD # of Emergency department Answers: 0 visits in the last 6 months Social determinants Answers: Mental health diagnosis (anxiety, depression, pers onality disorders, etc.) Score: 13 Date Signed: 12/22/2017 10:26 AM Electronically Signed By:Ilana Chung RN [facility] Initial CM Assessment Living Arrangements What is your living Answers: With Spouse arrangement? Who do you live with? Type Of Residence What kind of residence do Answers: House you live in? Discharge Plan Comments Coordination Status Comments Notes: Patient is a 72yo male with severe aortic stenosis who is having cardiac catheterization prior to aortic valve replacement. Cardiac rehab/PT/OT have been ordered. Patient lives in [place] with his . Patient most likely will need cardiac rehab. D/C plan TBD. CM will follow. Date Signed: 12/18/2017 12:32 PM Electronically Signed By:Calista Ford LCSW [facility] CM Progress Note CM Note CM Note Notes: CM spoke with KAMI Luna, patient progressing post op day 3. On O2 1-2 liters. All tubes removed today. Patient likely to discharge home independent in 1-2 days. CM to follow. Plan: home independent. Date Signed: 12/20/2017 05:17 PM Electronically Signed By:Aleshia Daley Case Management Discharge Plan Note Case Management Discharge Discharge Order Complete? Answers: Yes Patient to Obtain Answers: via Family Medications Transportation Arranged Answers: Family/Friends Discharge Comments Notes: 12/22/2017 Case Management Note Pt to discharge home with family support and follow up as directed. Family to transport home. Date Signed: 12/22/2017 10:28 AM Electronically Signed By:Ilana Chung RN Intervention Information Intervention Type:*IM-Signed Date of Service:12/22/2017 10:27 AM Patient Type:Inpatient Staff Member:Elisa Grace Hours: Discipline: Severity: Comment:
[2017-12-22 11:52] VITALS: BP 98/62
== END 2017-12-22 12:20 | disposition home or self-care (01) | DRG 217 ==
LOC: FCATH 12:18 → F2W 13:55 → F2N 12-17 09:27 → F2W 12-19 11:35
PROVIDERS: ADMIT Thoracic Surgery (Cardiothoracic Vascular Surgery); ATTEND Thoracic Surgery (Cardiothoracic Vascular Surgery)
PROC: B2111ZZ Fluoroscopy of Multiple Coronary Arteries using Low Osmolar Contrast (ICD-10-PCS; 2017-12-16)
PROC: 4A023N7 Measurement of Cardiac Sampling and Pressure, Left Heart, Percutaneous Approach (ICD-10-PCS; 2017-12-16)
PROC: 02RF08Z Replacement of Aortic Valve with Zooplastic Tissue, Open Approach (ICD-10-PCS; principal; 2017-12-17 08:45)
PROC: 02100Z9 Bypass Coronary Artery, One Artery from Left Internal Mammary, Open Approach (ICD-10-PCS; principal; 2017-12-17 08:45)
PROC: 02L70CK Occlusion of Left Atrial Appendage with Extraluminal Device, Open Approach (ICD-10-PCS; principal; 2017-12-17 08:45)
PROC: 021009W Bypass Coronary Artery, One Artery from Aorta with Autologous Venous Tissue, Open Approach (ICD-10-PCS; principal; 2017-12-17 08:45)
PROC: 5A1221Z Performance of Cardiac Output, Continuous (ICD-10-PCS; principal; 2017-12-17 08:45)
PROC: 06BQ4ZZ Excision of Left Saphenous Vein, Percutaneous Endoscopic Approach (ICD-10-PCS; principal; 2017-12-17 08:45)
DX: I35.0 Nonrheumatic aortic (valve) stenosis (principal); I25.10 Atherosclerotic heart disease of native coronary artery without angina pectoris; D62 Acute posthemorrhagic anemia; R73.9 Hyperglycemia, unspecified; L73.9 Follicular disorder, unspecified; E78.5 Hyperlipidemia, unspecified; Z87.891 Personal history of nicotine dependence; Z87.11 Personal history of peptic ulcer disease
CPT/HCPCS: 82435-PO; 82565-PO; 82947-PO; 83605-PO; 84132-PO; 84295-PO; 84520-PO; 85014-PO; 97116-GP; 97161-GP; 97165-GO; 97530-GP; 97535-GO; C1760; G8978-GP-CK; G8979-GP-CI; G8980-GP-CI; G8987-GO-CJ; G8988-GO-CI; G8989-GO-CI; J0153; J0282; J0690; J1170; J1265; J1644; J1815; J1885; J1940; J2001; J2150; J2250; J2260; J2270; J2370; J2405; J2440; J2704; J2720; J2765; J2930; J3010; J3475; J3480; P9041; Q9967

== ENCOUNTER → 2017-12-29 | Outpatient (CLI) | payer OTHER, MEDICARE | LOC: FIMAGING 09:45 | PROVIDERS: ATTEND Thoracic Surgery (Cardiothoracic Vascular Surgery) | DX: J90 Pleural effusion, not elsewhere classified (principal); J98.11 Atelectasis; I51.7 Cardiomegaly; Z95.818 Presence of other cardiac implants and grafts ==

== ENCOUNTER → 2018-01-21 | Outpatient (CLI) | payer OTHER, MEDICARE | LOC: BHFA 10:00 | PROVIDERS: ATTEND Internal Medicine Cardiovascular Disease | DX: R00.0 Tachycardia, unspecified (principal) ==

== ENCOUNTER → 2018-02-08 | Outpatient (CLI) | payer OTHER, MEDICARE | LOC: BHCLAF 15:30 | PROVIDERS: ATTEND Internal Medicine Cardiovascular Disease | DX: I35.9 Nonrheumatic aortic valve disorder, unspecified (principal); I25.119 Atherosclerotic heart disease of native coronary artery with unspecified angina pectoris; I44.7 Left bundle-branch block, unspecified | CPT/HCPCS: 93306-PO ==

== ENCOUNTER → 2018-04-08 | Outpatient (CLI) | payer OTHER, MEDICARE | LOC: BHFA 13:30 | PROVIDERS: ATTEND Internal Medicine Cardiovascular Disease | DX: I49.3 Ventricular premature depolarization (principal) ==